=== PATIENT | male | born 1965 | race Hispanic/Latino ===

== ENCOUNTER 2024-10-07 22:26 | Observation (INO) | payer BC ==
[~2024-10-07] VITALS: Ht 167.6 cm; Wt 94.3 kg
[2024-10-07 23:04] LABS: BASOPHILS # (AUTO) 0.04 K/uL (0.00-0.20); BASOPHILS % (AUTO) 0.5 % (0.0-5.0); EOSINOPHILS # (AUTO) 0.13 K/uL (0.00-0.70); EOSINOPHILS % (AUTO) 1.6 % (0.0-8.0); HEMATOCRIT 40.7 % (42-54); IMMATURE GRANULOCYTE ABSOLUTE 0.03 K/uL (0-1); LYMPHOCYTES # (AUTO) 3.8 K/uL (1.0-4.8); LYMPHOCYTES % (AUTO) 45.9 % (21.0-51.0); MEAN CORPUSCULAR HEMOGLOBIN 28.9 pg (27.0-33.0); MEAN CORPUSCULAR HGB CONC 33.2 g/dL (32.0-36.0); MEAN CORPUSCULAR VOLUME 87.2 fL (79-99); MONOCYTES # (AUTO) 0.6 K/uL (0.1-1.0); MONOCYTES % (AUTO) 7.7 % (3.0-13.0); NEUTROPHILS # (AUTO) 3.6 K/uL (1.8-7.7); NEUTROPHILS % (AUTO) 43.9 % (40.0-77.0); PLATELET COUNT (AUTO) 224 K/uL (130-400); RED BLOOD CELL COUNT(AUTO) 4.67 MIL/uL (4.50-6.20); RED CELL DISTRIBUTION WIDTH 13.4 % (11.0-15.5); WHITE BLOOD COUNT (AUTO) 8.3 K/uL (4.8-10.8)
[2024-10-07 23:19] LABS: CREATININE 0.9 mg/dL (0.5-1.3); POTASSIUM 3.8 mmol/L (3.5-5.1)
[2024-10-07 23:30] LABS: B-TYPE NATRIURETIC PEPTIDE 6 pg/mL (0-100)
--- NOTE | 2024-10-08 00:01 | NUR ---
PT CARE ASSUMED AT THIS TIME
[2024-10-08 00:29] LABS: APPEARANCE,URINE CLEAR (CLEAR); BILIRUBIN,URINE NEGATIVE (NEGATIVE); COLOR,URINE COLORLESS (YELLOW); GLUCOSE, URINE (UA) NEGATIVE (NEGATIVE); KETONES,URINE NEGATIVE (NEGATIVE); LEUKOCYTE ESTERASE ,URINE NEGATIVE Leu/uL (NEGATIVE); NITRATE,URINE NEGATIVE (NEGATIVE); OCCULT BLOOD,URINE NEGATIVE (NEGATIVE); PH,URINE 5.5 (5.0-8.0); PROTEIN,URINE NEGATIVE (NEGATIVE); UROBILINOGEN,URINE 0.2 mg/dL (0.2-1.0)
[2024-10-08 00:33] LABS: ADD UA MICROSCOPIC NO
--- NOTE | 2024-10-08 02:16 | ERN ---
ED Note History of Present Illness Stated Complaint: CP, SOB Chief Complaint: Chest Pain Time Seen by MD: 22:51 Dictation: This is a 58-year-old male who presented to the emergency room with complaints of midsternal chest pain that started on 10/06/2024. He stated that it is exactly in the middle with some radiation to the precordial area but no loss of consciousness. Initially he thought it was heartburn and took [id number] medications. Was severe he came in today for evaluation he reported to me that he had an AR 10 years ago and he was transferred to [facility], [place], operated by [facility] in [facility] where a cardiac catheterization was done but he does not recall any stents being placed. 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 Note Reviewed/Agreed w/PFSH: Yes Review of System Dictation Constitutional: Negative for fever,chills, and weight loss Eyes: Negative for injury, pain,redness, and discharge ENT: Negative for injury,pain or swelling Cardiovascular: Positive for chest pain, denies palpitations, and edema Respiratory: Negative for shortness of breath, cough, and wheezing, Abdomen/GI: Negative for abdominal pain, nausea, vomiting, diarrhea, and constipation Back: Negative for injury and pain : Negative for injury, bleeding and discharge MS/Extremity: Negative for injury and deformity Skin: Negative for rash, and discoloration Neuro: Negative for headache, weakness, numbness, tingling, and seizure Psych: Negative for suicide ideation, homicidal ideation, and hallucinations Initial Vital Sign VS Vital Signs Date Time Temp Pulse Resp B/P (MAP) Pulse Ox O2 Delivery O2 Flow Rate FiO2 10/07/24 22:27 96.6 65 16 136/79 98 Room Air 10/08/24 00:18 0 21 Physical Exam Dictation General: awake, alert, NAD Head/Face: Normocephalic, atraumatic Eyes: PERRL, EOMI, vision at baseline ENT: oral cavity clear, TMs clear, no signs of infection Neck: Trachea midline, supple, no nuchal rigidity Cardiovascular: RRR, normal S1/S2, No MRGs, no JVD no chest wall tenderness Respiratory: CTAB, no respiratory distress, No rales or wheezes Abdomen: Soft, non-tender, non-distended, normal bowel sounds, no guarding or rebound. Skin: Warm, dry, normal turgor, no rash MS/Extremity: Pulses equal, no cyanosis, neurovascular intact, FROM Neuro: COAx4, GCS 15, strength 5/5, CN 2-12 intact, normal cerebellar exam, normal gait, Psych: Normal behavior, mood, and affect normal Extremities-trace edema without any palpable cords, Homans sign is negative Results (Laboratory/Radiology) Laboratory/Radiology Laboratory Tests Test 10/07/24 22:52 10/07/24 23:13 10/08/24 00:16 White Blood Count 8.3 K/uL (4.8-10.8) Red Blood Count 4.67 MIL/uL (4.50-6.20) Hemoglobin 13.5 g/dL (14.0-18.0) L Hematocrit 40.7 % (42-54) L Mean Corpuscular Volume 87.2 fL (79-99) Mean Corpuscular Hemoglobin 28.9 pg (27.0-33.0) Mean Corpuscular Hemoglobin Concent 33.2 g/dL (32.0-36.0) Red Cell Distribution Width 13.4 % (11.0-15.5) Platelet Count 224 K/uL (130-400) Mean Platelet Volume 10.2 fL (7.5-10.5) Immature Granulocyte % (Auto) 0.4 % (0-1) Neutrophils (%) (Auto) 43.9 % (40.0-77.0) Lymphocytes (%) (Auto) 45.9 % (21.0-51.0) Monocytes (%) (Auto) 7.7 % (3.0-13.0) Eosinophils (%) (Auto) 1.6 % (0.0-8.0) Basophils (%) (Auto) 0.5 % (0.0-5.0) Neutrophils # (Auto) 3.6 K/uL (1.8-7.7) Lymphocytes # (Auto) 3.8 K/uL (1.0-4.8) Monocytes # (Auto) 0.6 K/uL (0.1-1.0) Eosinophils # (Auto) 0.13 K/uL (0.00-0.70) Basophils # (Auto) 0.04 K/uL (0.00-0.20) Absolute Immature Granulocyte (auto 0.03 K/uL (0-1) Nucleated Red Blood Cells 0.0 % (0.0-0.19) Sodium Level 138 mmol/L (136-145) Potassium Level 3.8 mmol/L (3.5-5.1) Chloride Level 103 mmol/L (101-111) Carbon Dioxide Level 29 mmol/L (21-32) Blood Urea Nitrogen 17 mg/dL (7-18) Creatinine 0.9 mg/dL (0.5-1.3) Glomerular Filtration Rate Calc 98 mL/min (>90) Random Glucose 134 mg/dL (70-105) H Total Calcium 8.6 mg/dL (8.5-10.1) Total Creatine Kinase 293 U/L (21-232) H Troponin I High Sensitivity 6 ng/L (4-75) B-Type Natriuretic Peptide 6 pg/mL (0-100) Troponin I < 0.05 ng/mL (0.00-0.05) Urine Color COLORLESS (YELLOW) Urine Appearance CLEAR (CLEAR) Urine pH 5.5 (5.0-8.0) Urine Specific [place] 1.010 (1.001-1.031) Urine Protein NEGATIVE mg/dL (NEGATIVE) Urine Glucose (UA) NEGATIVE mg/dL (NEGATIVE) Urine Ketones NEGATIVE mg/dL (NEGATIVE) Urine Occult Blood NEGATIVE (NEGATIVE) Urine Nitrate NEGATIVE (NEGATIVE) Urine Bilirubin NEGATIVE mg/dL (NEGATIVE) Urine Urobilinogen 0.2 mg/dL (0.2-1.0) Urine Leukocyte Esterase NEGATIVE Ayanna/uL Labs Reviewed?: Yes ED Course ED Course Orders Procedure Category Date Status Time Vital Signs Per CPOE 10/07/24 Transmitted Routine 22:28 B-Type Natriuretic LAB 10/07/24 Complete Peptide 22:28 Chest 1vw RAD 10/07/24 Taken 22:28 12 Lead Ekg Tracing- EKG 10/07/24 Logged Technical 22:28 Oxygen By Nc/Pulse Ox CPOE 10/07/24 Transmitted 22:28 Maintain Iv CPOE 10/07/24 Transmitted 22:28 Iv Insertion CPOE 10/07/24 Transmitted 22:28 Cardiac Monitoring CPOE 10/07/24 Transmitted 22:28 Pulse Oximetry With CPOE 10/07/24 Transmitted Vs And Prn 22:28 Cbc With Differential LAB 10/07/24 Complete 22:28 Activity: Br W/Brp CPOE 10/07/24 Transmitted With Assist 22:28 Creatine Kinase, Total LAB 10/07/24 Complete 22:28 Troponin I High LAB 10/07/24 Complete Sensitivity 22:28 Urinalysis Profile LAB 10/07/24 Complete 22:28 Troponin Poc Order LAB 10/07/24 Complete Only 22:28 Bedside Troponin-I LAB.ER 10/07/24 In Process (Poc) 22:28 Basic Metabolic Panel LAB 10/07/24 Complete 22:28 Vital Signs Date Time Temp Pulse Resp B/P (MAP) Pulse Ox O2 Delivery O2 Flow Rate FiO2 10/08/24 01:35 68 19 120/61 97 Room Air* 0 21 10/08/24 00:18 97.9 60 19 113/64 95 Room Air* 0 21 10/07/24 22:27 96.6 65 16 136/79 98 Room Air HEART Score Response (Comments) Value History: Moderate suspicion (+1) 1 EKG: Repolarization changes 1 Age: 45-65yrs (+1) 1 Risk Factors: 1-2 risk factors (+1) 1 Initial Troponin: Normal limit (0) 0 HEART Score Risk: Low Risk for MACE (1-3) Total 4 Medical Decision Making MDM MDM: Differential diagnosis: ACS, unstable angina, progressive coronary artery disease, esophagitis Rationale: Tests considered and ordered secondary to shared decision making include: labs, ECG and radiology Previous outside records reviewed: Old ER visits. Risk of complication and/or morbidity or mortality of patient management: None Medications-Per medication reconciliation Need for hospitalization: Patient does meet criteria for hospitalization. Need for emergency major/minor surgery: No There are no social concerns with this patient. Prescription drug management Prescriptions will include symptomatic care Patient's prior external medical records from other ER visits were reviewed by me as indicated. Prior testing and results from previous visits were reviewed. Prior tests were taken into account with medical decision making and resource utilization, independent historian/historians were used to obtain complete medical history. I independently interpreted the test that were performed, results were reviewed by me and considered findings on radiology if ordered. Medical management and examination interpretation discussions were had by me with other qualified healthcare professionals as indicated for the patient's care. Problem List Problem List: (1) Chest pain at rest (2) History of AR (myocardial infarction) (3) Hypercholesterolemia (4) Obesity (BMI 30.0-34.9) DX & DISP Disposition: Inpatient Decision to Admit Time: 02:15 Departure Impression: Primary Impression: Chest pain at rest Additional Impressions: History of AR (myocardial infarction), Hypercholesterolemia, Obesity (BMI 30.0-34.9) Condition: Stable Additional Instructions: Patient was informed of all the diagnostic labs and procedures conducted in the emergency room today and demonstrated understanding of the results. I personally reviewed and interpreted all the diagnostic exams performed in the ER today. The patient will be admitted to the hospital for further treatment and evaluation. Disposition-admit to facility Condition-stable/guarded Course-uncertain at this time Pain status-decreased Assessment-exam unchanged Admission Certification- I certify that the patients status is appropriate and is based on my best clinical judgment and the patient's condition as documented in the medical records Referrals: SELF,REFERRAL (PCP) NICHOLAS MUELLER MD Oct 08, 2024 02:16
[2024-10-08] MEDS ORDERED: hydrALAZine 20MG/ML VIAL IV PRN (02:30)
[2024-10-08] MEDS ORDERED: ondanSETRON 4MG INJ IV PRN (02:30)
[2024-10-08] MEDS ORDERED: NITROGLYCERIN 0.4 MG SL TAB SL PRN (02:30)
--- NOTE | 2024-10-08 02:32 | HP ---
History of Present Illness Reason for Visit: Chest pain History of Present Illness Mr. Chacko is a 58-year-old male that was seen and examined today on 10/08/2024. Patient is a good historian of personal health Patient states that he came to the emergency department with a chief complaint of chest pain. Onset was four days ago. Location is to lower sternum and epigastric area. Duration is on and off. Character is described as burning. Symptoms are aggravated with eating. There was no alleviating factors. Patient denies any associated shortness of breath. Today in the emergency department CBC unremarkable, CK 293, urinalysis unremarkable, chest x-ray is pending radiology interpretation. Emergency room physician recommended that patient be admitted with a diagnosis of chest pain. Past Medical History ADDITIONAL PAST MEDICAL HISTORY: [Denies] SOCIAL HISTORY: [Negative for smoking, alcohol use, drug use. Patient lives with his Suam Chacko. Patient is typically independent of all his ADLs. Patient denies difficulty pain is bills. Patient is currently unemployed. Patient has good access to health care through his insurance.] SURGICAL HISTORY: [Right knee surgery] Review of Systems General: No Fever, No Chills, No Night Sweats, No Fatigue, No Malaise, No Appetite, No Other HEENT: No Head Aches, No Visual Changes, No Eye Pain, No Ear Pain, No Dysphasia, No Sinus Congestion, No Post Nasal Drip, No Sore Throat, No Other Pulmonary: No Dyspnea, No Cough, No Pleuritic Chest Pain, No Other Cardiovascular: Chest Pain; No: Palpitations, Orthopnea, Paroxysmal Noc. Dyspnea, Edema, Lt Headedness, Other Gastrointestinal: No: Nausea, Vomiting, Abdominal Pain, Diarrhea, Constipation, Melena, Hematochezia, Other Genitourinary: No Dysuria, No Frequency, No Incontinence, No Hematuria, No Retention, No Other Musculoskeletal: No: other, neck pain, shoulder pain, arm pain, back pain, hand pain, leg pain, foot pain Skin: No Urticaria, No Rash, No Other Neurological: No: Weakness, Numbness, Incoordination, Change in speech, Confusion, Seizures, Other Allergies: Coded Allergies: No Known Allergies (Unverified Allergy, Unknown, 10/07/24) Exam Vital Signs Vital Signs Date Time Temp Pulse Resp B/P (MAP) Pulse Ox O2 Delivery O2 Flow Rate FiO2 10/08/24 01:35 68 19 120/61 97 Room Air* 0 21 10/08/24 00:18 97.9 General Appearance: Alert, Oriented X3, Cooperative, No acute distress HEENT: Atraumatic, EOMI Respiratory: Clear to auscultation, Normal air movement, NL respiratory effort Cardiovascular: Regular rate, Regular rhythm, Normal S1, Normal S2 Abdominal: Normal bowel sounds, Soft, No tenderness Extremities: No edema Skin: No significant lesion Neuro: Normal speech, Strength at 5/5 X4 ext, Sensation intact, Cranial nerves 3-12 NL Psych/Mental Status: Mood NL, Thoughts/Content NL Assessment/Plan ASSESSMENT: [ Chest pain, POA Mild rhabdomyolysis, POA Gastritis, POA] PLAN: [ Admit patient to medical floor as inpatient status. Place patient on telemetry monitoring. Administer aspirin 325 mg by mouth times 1 dose Continue aspirin 81 mg by mouth once daily Nitroglycerin sublingual 0.4 mg as needed for chest pain every 5 minutes, max 3 doses, hold for systolic blood pressure less than 100 mmHg. Trend troponin every 6 hours x 3 sets Supplemental oxygen to maintain O2 saturation greater than 92% Consult cardiology if any elevation in troponin or troponin uptrending Lactated Ringer's 1 L IV bolus. Recheck CK at 10:00 a.m. Maalox 30 mL by mouth times 1. Viscous lidocaine 2% 10 mL by mouth as 1. Bentyl 10 mg/5 mL by mouth times 1. GI prophylaxis, famotidine DVT prophylaxis, Lovenox ADVANCED CARE PLANNING 1. Which of the following were discussed? Hospice Care - Yes / No Therapeutic options - Yes / No Advance Directives - Yes -patient states he does not have any advance directives in place at this time, however his can make decisions for him if he becomes unable. Other discussions - patient wishes to remain a full code at this time 2. Discussed with who? Patient 3. Voluntary nature of this service was explained to the patient? Yes 4. Amount of time spent - ___ 16 minutes ____ 5. Reviewed by Physician? (if this service was performed by NPP) Yes This document was generated in part using voice recognition software, occasional wrong word or sound alike substitutions may have occurred due to the inherent limitations of voice recognition software. Read the chart carefully and recognize using context, where the substitutions have occurred. Although every effort was made to edit the content, medical center representative and typing errors may occur ATTESTATION BY PHYSICIAN I have seen and examined the patient. I reviewed the documentation, medical decision making, and treatment plan as noted by the mid-level provider above. I agree with the findings and plan of care. ANDER DORSEY [facility] Oct 08, 2024 02:32
[2024-10-08] MEDS: ASPIRIN 325MG TAB PO ONE (02:43)
[2024-10-08] MEDS: PANTOPrazole 40 MG TAB DR PO ONE (02:44)
[2024-10-08] MEDS: LACTATED RINGERS 1000ML IV ONE (02:44)
[2024-10-08] MEDS: LIDOCAINE HCL 2% VISCOUS 15 ML UDCUP PO ONE (03:02)
[2024-10-08] MEDS: MAG/ALUM/SIMETH 30 ML UDCUP PO ONE (03:02)
[2024-10-08] MEDS: DICYCLOMINE HCL 10 MG/5 ML ML PO ONE (03:03)
--- NOTE | 2024-10-08 06:25 | EKG ---
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
--- NOTE | 2024-10-08 07:06 | NUR ---
REPORT GIVEN TO MIGDALIA HARVEY AT THIS TIME
[2024-10-08 07:35] LABS: BASOPHILS # (AUTO) 0.02 K/uL (0.00-0.20); BASOPHILS % (AUTO) 0.3 % (0.0-5.0); EOSINOPHILS # (AUTO) 0.11 K/uL (0.00-0.70); EOSINOPHILS % (AUTO) 1.8 % (0.0-8.0); HEMATOCRIT 41.5 % (42-54); IMMATURE GRANULOCYTE ABSOLUTE 0.02 K/uL (0-1); LYMPHOCYTES # (AUTO) 2.7 K/uL (1.0-4.8); LYMPHOCYTES % (AUTO) 44.9 % (21.0-51.0); MEAN CORPUSCULAR HEMOGLOBIN 28.7 pg (27.0-33.0); MEAN CORPUSCULAR HGB CONC 32.5 g/dL (32.0-36.0); MEAN CORPUSCULAR VOLUME 88.1 fL (79-99); MONOCYTES # (AUTO) 0.5 K/uL (0.1-1.0); MONOCYTES % (AUTO) 7.5 % (3.0-13.0); NEUTROPHILS # (AUTO) 2.7 K/uL (1.8-7.7); NEUTROPHILS % (AUTO) 45.2 % (40.0-77.0); PLATELET COUNT (AUTO) 224 K/uL (130-400); RED BLOOD CELL COUNT(AUTO) 4.71 MIL/uL (4.50-6.20); RED CELL DISTRIBUTION WIDTH 13.6 % (11.0-15.5)
[2024-10-08 07:47] LABS: CREATININE 0.7 mg/dL (0.5-1.3); MAGNESIUM 1.9 mg/dL (1.80-2.40); PHOSPHORUS 3.4 mg/dL (2.5-4.9); POTASSIUM 3.9 mmol/L (3.5-5.1)
--- NOTE | 2024-10-08 07:55 | NUR ---
PT ASSESSMENT: PT APPEARED TO BE ASLEEP UPON ENTERING THE PTS ROOM. NO ACUTE DISTRESS NOTED. PT AWOKE W/LIGHT TOUCH STIMULI. PT HAS SINUS RHYTHM ON AGENT TICKETING GATE. CARDIO/PULMONARY: PT DENIES CP AT THIS TIME. SR NO ECTOPY NOTED. S1S2 AUSCULTED APICALLY. 2+ PULSES TO BILATERAL RADIAL AND DORSALIS PEDAL SITES. NO EDEMA NOTED TO LE'S. PT HAS A L AC 20G. LSCTA TO ALL LUNG BROOKS. NO USE OF ACCESSORY MUSCLES NOR STERNAL RETRACTIONS NOTED. CAP REFILL LESS THAN 3 SECONDS AND NO CYANOSIS NOTED TO NAIL BEDS ON HANDS. NEURO: PT A/O X 4. FOLLOWS SIMPLE AND COMPLEX COMMANDS. PT GCS 15 AND NEUROLOGICALLY INTACT. GI/: PT DENIES ANY BOWEL OR BLADDER ISSUES. HE IS ABLE TO VOID VIA URINAL AND IS ABLE TO AMBULATE TO THE TOILET TO HAVE A STOOL NEED BE. MUSCULOSKELETAL/INTEGUMENTARY: PT HAS FULL ROM TO ALL EXTREMITIES. NO NOTED NOR VERBALIZED SKIN WOUNDS OR LESIONS.
--- NOTE | 2024-10-08 08:32 | NUR ---
MEDICATION RECONILIATION: NO HOME MEDICATIONS. PT STATES HE TAKES ONLY OTC'S
[2024-10-08] MEDS: ASPIRIN 81 MG EC TAB PO SCH (09:17)
[2024-10-08] MEDS: FAMOTIDINE 20MG TAB PO SCH (09:17)
[2024-10-08] MEDS: 0.9%NACL 1000ML 1,000 ML IV SCH (09:18)
[2024-10-08] MEDS: ENOXAPARIN SODIUM 40 MG/0.4 ML SYRINGE SQ SCH (09:18)
--- NOTE | 2024-10-08 09:38 | HMCIMG ---
PORTABLE CHEST RADIOGRAPH INDICATION: CHEST PAIN COMPARISON: None FINDINGS: Heart size is normal. The pulmonary vascularity and dai appear normal. No abnormal pulmonary parenchymal opacity or consolidation identified. No significant pleural effusion noted. No pneumothorax detected. IMPRESSION: No radiographic evidence for any acute cardiopulmonary process.
--- NOTE | 2024-10-08 11:21 | NUR ---
DCP Patient is Telugu speaking. Patient live in a house with three steps at the entrance and walk in shower with Suma Chacko, Spouse [phone]. Address: [address], [place]. States he is unemployed due to returning home to care for spouse's illness, remains independent and drives self. States able to complete ADL's on his own. States has a cane from previous extremity injury; denies other medical devices. Denies home health services, home care provider or dialysis. PCP - Sumeet Bundy MD [facility]. Upon discharge, Suma Chacko, Spouse [phone] and will assist with care, as needed. Patient does not foresee additional needs at this time. Addendum: 10/08/24 at 1129 by EVELYN DUARTE RN CM Amended: Links added.
--- NOTE | 2024-10-08 11:57 | PN ---
[facility] PROGRESS NOTE Date of Service: Oct 08, 2024 Time of Service: 11:[address] Brown SUBJECTIVE: [ 10/07 Mr. Chacko is a 58-year-old male that was seen and examined today on 10/08/2024. Patient is a good historian of personal health Patient states that he came to the emergency department with a chief complaint of chest pain. Onset was four days ago. Location is to lower sternum and epigastric area. Duration is on and off. Character is described as burning. Symptoms are aggravated with eating. There was no alleviating factors. Patient denies any associated shortness of breath. Today in the emergency department CBC unremarkable, CK 293, urinalysis unremarkable, chest x-ray is pending radiology interpretation. Emergency room physician recommended that patient be admitted with a diagnosis of chest pain. 10/08 patient was seen by nurse practitioner and physician during rounding in emergency department in room ED 9. Patient is s/p chest x-ray which is negative. CK showed 293 patient is on normal saline at 100 mL/hour. Troponin negative x2. We are pending 2D echo at this moment. Patient denies any antonio rtness of breath, chest pain, nausea, vomiting or any other discomfort at this moment. As per patient he does not take any medications at home besides some vitamins. At this moment we will hold off to consult litigation specialist until 2D echo results. We will continue to monitor patient in the meantime. A.m. labs.] REVIEW OF SYSTEMS CONSTITUTIONAL: Denies fevers, chills, or night sweats. No unintentional weight loss reported. NEUROLOGICAL: Denies headache, amaurosis fugax, motor weakness, sensory deficit, vertigo/spinning sensation, gait abnormalities, or tremors. ENT: No hearing loss, otalgia, otorrhea, rhinitis, rhinorrhea, hoarseness, or sore throat. CARDIOVASCULAR: Denies any exertional angina, dyspnea on exertion, orthopnea, paroxysmal nocturnal dyspnea, palpitations, life-threatening arrhythmias, claudication. PULMONARY: Denies any shortness of breath, cough, phlegm/sputum, hemoptysis, pleuritic chest pain. SLEEP: Denies morning headaches, daytime somnolence or napping. Denies difficulty falling asleep, staying asleep, waking from sleep. Denies knowledge of snoring. GASTROINTESTINAL: Denies any type of dysphagia to either liquids or solids. Denies nausea, vomiting, pyrosis, early satiety, abdominal pain, diarrhea, constipation, or changes in stool consistency or caliber. Denies coffee-ground emesis, hematemesis, hematochezia, or melanotic stools. GENITOURINARY: Denies frequency, urgency, nocturia, hematuria or incontinence (Storage/Irritative symptoms.) Low urinary stream, straining to void, urinary intermittency or hesitancy, splitting of the voiding stream, terminal dribbling. ENDOCRINOLOGIC: Denies polyuria, polydipsia, polyphagia or heat/cold intolerances. HEMATOLOGIC: Denies thrombophilia/previous clots, or coagulopathy/bleeding disorders. ONCOLOGIC: Denies personal history of malignancy. DERMATOLOGIC: Denies rashes or pruritus. PSYCHIATRIC: Denies any suicidal or homicidal ideation. Denies hallucinations. PHYSICAL EXAM GENERAL APPEARANCE: The patient is awake, alert, and oriented, in no acute cardiopulmonary distress. NEUROLOGICAL: Cranial nerves II-XII grossly intact. Motor is 5/5 in bilateral upper and lower extremities proximal to distal. No sensory deficits. HEENT: Face is symmetric. Pupils are equal and reactive. Extraocular movements are intact. NECK: Supple. No JVD. No thyromegaly. No submental, submandibular, pre- /postauricular, occipital or supraclavicular lymphadenopathy. CHEST: Normal chest expansion. No Telemetry. LUNGS: Absence of any rales, rhonchi or any wheezing. CARDIOVASCULAR: Regular. S1 and S2 normal. No appreciable rubs, murmurs or gallops. ABDOMEN: Soft, nontender, and nondistended. There is no rebound, voluntary guarding, or rigidity. : Deferred. No Falcon. EXTREMITIES: Non-edematous and not cyanotic. No clubbing. Good capillary refill. SKIN: No skin breakdown. Vital Signs (last 8hr) Date Time Temp Pulse Resp B/P (MAP) Pulse Ox O2 Delivery O2 Flow Rate FiO2 10/08/24 06:51 62 18 122/66 95 Room Air* 0 21 10/08/24 04:11 63 20 112/69 96 Room Air* 0 21 LABS: Laboratory: Test 10/08/24 06:49 10/08/24 00:16 10/07/24 23:13 10/07/24 22:52 Range/Units White Blood Count 6.0 # 4.8-10.8 K/uL Red Blood Count 4.71 4.50-6.20 MIL/uL Hemoglobin 13.5 L 14.0-18.0 g/dL Hematocrit 41.5 L 42-54 % Mean Corpuscular Volume 88.1 79-99 fL Mean Corpuscular Hemoglobin 28.7 27.0-33.0 pg Mean Corpuscular Hemoglobin Concent 32.5 32.0-36.0 g/dL Red Cell Distribution Width 13.6 11.0-15.5 % Platelet Count 224 130-400 K/uL Mean Platelet Volume 10.7 H 7.5-10.5 fL Immature Granulocyte % (Auto) 0.3 0-1 % Neutrophils (%) (Auto) 45.2 40.0-77.0 % Lymphocytes (%) (Auto) 44.9 21.0-51.0 % Monocytes (%) (Auto) 7.5 3.0-13.0 % Eosinophils (%) (Auto) 1.8 0.0-8.0 % Basophils (%) (Auto) 0.3 0.0-5.0 % Neutrophils # (Auto) 2.7 1.8-7.7 K/uL Lymphocytes # (Auto) 2.7 1.0-4.8 K/uL Monocytes # (Auto) 0.5 0.1-1.0 K/uL Eosinophils # (Auto) 0.11 0.00-0.70 K/uL Basophils # (Auto) 0.02 0.00-0.20 K/uL Absolute Immature Granulocyte (auto 0.02 0-1 K/uL Nucleated Red Blood Cells 0.0 0.0-0.19 % Sodium Level 140 136-145 mmol/L Potassium Level 3.9 3.5-5.1 mmol/L Chloride Level 106 101-111 mmol/L Carbon Dioxide Level 27 21-32 mmol/L Blood Urea Nitrogen 12 7-18 mg/dL Creatinine 0.7 0.5-1.3 mg/dL Glomerular Filtration Rate Calc 105 >90 mL/min Random Glucose 116 H 70-105 mg/dL Total Calcium 8.6 8.5-10.1 mg/dL Phosphorus Level 3.4 2.5-4.9 mg/dL Magnesium Level 1.90 1.80-2.40 mg/dL Troponin I High Sensitivity 8 4-75 ng/L Urine Color COLORLESS YELLOW Urine Appearance CLEAR CLEAR Urine pH 5.5 5.0-8.0 Urine Specific Basom 1.010 1.001-1.031 Urine Protein NEGATIVE NEGATIVE mg/dL Urine Glucose (UA) NEGATIVE NEGATIVE mg/dL Urine Ketones NEGATIVE NEGATIVE mg/dL Urine Occult Blood NEGATIVE NEGATIVE Urine Nitrate NEGATIVE NEGATIVE Urine Bilirubin NEGATIVE NEGATIVE mg/dL Urine Urobilinogen 0.2 0.2-1.0 mg/dL Urine Leukocyte Esterase NEGATIVE NEGATIVE Ayanna/uL Troponin I < 0.05 0.00-0.05 ng/mL Total Creatine Kinase 293 H 21-232 U/L B-Type Natriuretic Peptide 6 0-100 pg/mL Current Medications Medications (Trade) Dose Ordered Sig/Trinity Route PRN Reason Start Time Stop Time Status Last Admin Dose Admin Aspirin (Aspirin 81mg Ec Tab) 81 mg DAILY PO 10/08/24 09:00 11/07/24 08:59 10/08/24 09:17 81 MG Enoxaparin Sodium (Lovenox) 40 mg DAILY SQ 10/08/24 09:00 11/07/24 08:59 10/08/24 09:18 40 MG Famotidine (Pepcid 20mg Tab) 20 mg DAILY PO 10/08/24 09:00 11/07/24 08:59 10/08/24 09:17 20 MG Hydralazine HCl (APRESOLine 20MG INJ) 10 mg Q6H PRN IV For:SBP above 160;DBP above 90 10/08/24 02:30 11/07/24 02:29 Nitroglycerin (Nitrostat) 0.4 mg PROTOCOL PRN SL CHEST PAIN 10/08/24 02:30 11/07/24 02:29 Ondansetron HCl (zoFRAN 4MG INJ) 4 mg Q6H PRN IV NAUSEA/VOMITING 10/08/24 02:30 11/07/24 02:29 Sodium Chloride 1,000 ml @ 100 mls/hr Q10H IV 10/08/24 09:30 11/07/24 09:29 10/08/24 09:18 100 MLS/HR DIAGNOSTICS / RADIOLOGY: [ ] ASSESSMENT: [ Acute chest pain of unknown origin POA Acute rhabdomyolysis POA Acute gastritis POA Uncontrolled hypertension POA Multifactorial anemia of unknown origin POA] PLAN: [ Pending 2D echo results Patient admitted to inpatient status to the medical floor Patient with a tele monitor Aspirin 325 daily Nitroglycerin sublingual p.r.n. Troponins every 6 hours x3 sets 0 two as needed Consult cardiology if elevation in troponins or abnormal 2D echo LR at 100 mL/hour A.m. labs GI prophylaxis famotidine Lovenox DVT prophylaxis Chest x-ray negative Urinalysis negative Patient stated he does not take any medications at home besides vitamins here and there] ATTESTATION BY PHYSICIAN I have seen and examined the patient. I reviewed the documentation, medical decision making, and treatment plan as noted by the mid-level provider above. I agree with the findings and plan of care. ERIN Pereira MD RESIDENTIAL TEAM LEADER Oct 08, 2024 11:57
--- NOTE | 2024-10-08 14:32 | HMCSR ---
APPROVED REPORT EXAM: Two-dimensional and M-mode echocardiogram with Doppler and color Doppler. INDICATION ICD: Chest Pain Heart Failure 2D Dimensions RVDd4.6 cmLVEF(%)54.6 (>50%)LVED Vol(simp.)109.4 mL IVSd0.8 (0.7-1.1cm)FS(%)28 %LVES Vol(simp.)43.2 mL LVDd4.4 (3.8-5.6cm)LA (2D)3.4 (1.6-4.0cm)LVEF(%, simp.)61 % PWd1.0 (0.7-1.1cm)Ao Root(2D)3.1 (2.0-3.7cm)LA ESV INDEX (BP)24.42 mL/m2 IVSs1.1 cmLVOT diam2.2 (1.8-2.4cm) LVDs3.1 (2.5-4.0cm)IVC diam2.2 cm PWs1.2 cm Deformation Strain Apical 4-14.0 % Apical 2-19.0 % Apical 3-19.0 % Global Strain-17.0 % M-Mode Dimensions EPSS0.7 cm LA (MM)3.7 (1.6-4.0cm) Ao Root(MM)3.1 (2.0-3.7cm) Aortic Valve AoV Vmax1.4 m/Amee Peak GR7.9 mmHgLVOT Vmax1.0 m/s AoV VTI0.3 mAo Mean GR3.9 mmHgLVOT VTI0.23 m OTONIEL (VMAX)2.5 cm2AVA (VTI) 2.5 cm2 Mitral Valve MV E Vmax68.4 cm/sDECEL Mcnh151 ms MV A Vmax77.7 cm/sP 1/2 T100 ms E/A ratio0.9MVA (PHT)2.2 cm2 TDI E/E' Medial4.8 Tricuspid Valve TR Vmax2.2 m/sRVSP19.2 mmHg TR Peak GR19.3 mmHg Left Ventricle Left ventricular cavity size is normal. GS -17% There is normal LV segmental wall motion. There is no rmal left ventricular wall thickness. LVEF is 55-60%. 3D volume EF 60% Stage I diastolic dysfunction. Right Ventricle The right ventricle is mildly dilated. The right ventricular systolic function is normal. Atria The left atrium size is normal. The right atrium size is normal. Aortic Valve The aortic valve is normal in structure and function. Trace aortic regurgitation. There is no aortic valvular stenosis. Mitral Valve The mitral valve is normal in structure and function. Mitral regurgitation is trace. There is no mitr al valve stenosis. Tricuspid Valve The tricuspid valve is normal in structure and function. There is trace tricuspid valve regurgitation noted. Pulmonic Valve The pulmonary valve is normal in structure and function. There is no pulmonic valvular regurgitation. Great Vessels The aortic root is normal in size. The IVC is normal in size and collapses >50% with inspiration. Pericardium No pericardial effusion. Conclusion LVEF is 55-60%. 3D volume EF 60% GS -17% There is normal LV segmental wall motion. The aortic root is normal in size. No pericardial effusion.
--- NOTE | 2024-10-08 15:23 | NUR ---
PT CURRENTLY DENIES ANY CHEST PAIN/DISCOMFORT.
[2024-10-08 22:50] VITALS: BP 124/83; PULSE 68; RESP 18; TEMP 97.7
[2024-10-08] MEDS: acetaMINOPHEN 500 MG TABLET PO PRN (23:25)
[2024-10-09 04:07] VITALS: BP 90/59; PULSE 83; RESP 19; TEMP 97.9
[2024-10-09 04:17] LABS: BASOPHILS # (AUTO) 0.02 K/uL (0.00-0.20); BASOPHILS % (AUTO) 0.3 % (0.0-5.0); EOSINOPHILS # (AUTO) 0.12 K/uL (0.00-0.70); EOSINOPHILS % (AUTO) 1.8 % (0.0-8.0); HEMATOCRIT 41.4 % (42-54); IMMATURE GRANULOCYTE ABSOLUTE 0.02 K/uL (0-1); LYMPHOCYTES # (AUTO) 2.7 K/uL (1.0-4.8); MEAN CORPUSCULAR HEMOGLOBIN 28.8 pg (27.0-33.0); MEAN CORPUSCULAR HGB CONC 32.9 g/dL (32.0-36.0); MEAN CORPUSCULAR VOLUME 87.5 fL (79-99); MONOCYTES # (AUTO) 0.6 K/uL (0.1-1.0); MONOCYTES % (AUTO) 8.5 % (3.0-13.0); NEUTROPHILS # (AUTO) 3.1 K/uL (1.8-7.7); NEUTROPHILS % (AUTO) 48.1 % (40.0-77.0); PLATELET COUNT (AUTO) 202 K/uL (130-400); RED BLOOD CELL COUNT(AUTO) 4.73 MIL/uL (4.50-6.20); RED CELL DISTRIBUTION WIDTH 13.7 % (11.0-15.5); WHITE BLOOD COUNT (AUTO) 6.5 K/uL (4.8-10.8)
[2024-10-09 04:31] LABS: ALBUMIN 3.5 g/dL (3.5-5.0); BILIRUBIN,TOTAL 0.3 mg/dL (0.2-1.0); CREATININE 0.9 mg/dL (0.5-1.3); MAGNESIUM 2.1 mg/dL (1.80-2.40); POTASSIUM 3.6 mmol/L (3.5-5.1); TOTAL PROTEIN, SERUM 6.9 g/dL (6.0-8.3)
[2024-10-09 08:00] VITALS: BP 144/89; PULSE 90; RESP 19; TEMP 98.2
[2024-10-09 08:45] VITALS: O2SAT 95
[2024-10-09] MEDS ORDERED: TAMSULOSIN PO (08:45)
[2024-10-09] MEDS ORDERED: ROSU10TA72 PO (08:45)
--- NOTE | 2024-10-09 08:48 | NUR ---
HOME MEDICATIONS HOME MEDICATIONS ENTERED INDICATED BY PATIENT AND COMPARING WITH EXTERNAL PHARMACY. PATIENT CONFIRMED. PENDING RECONCILIATION
[2024-10-09 12:00] VITALS: BP 125/72; PULSE 75; RESP 19; TEMP 97.8
[2024-10-09 16:00] VITALS: BP 122/82; PULSE 77; RESP 19; TEMP 98
--- NOTE | 2024-10-09 16:25 | DS ---
Discharge Summary Hospital Course Summary: Mr. Chacko is a 58-year-old male that was seen and examined today on 10/08/2024. Patient is a good historian of personal health Patient states that he came to the emergency department with a chief complaint of chest pain. Onset was four days ago. Location is to lower sternum and epigastric area. Duration is on and off. Character is described as burning. Symptoms are aggravated with eating. There was no alleviating factors. Patient denies any associated shortness of breath. During the hospital stay patient was chest pain has resolved and he thought it was more like epigastric pain. His troponins were negative. EKG was without acute ST-T changes. A 2D echocardiogram showed normal LVEF function 55-60%. With the symptoms have improved he desired to go home. He was advised to get a stress test by his primary care physician. He will follow up with him this coming Friday and we will get scheduled for a stress rest patient was ambulating free of chest pain and was discharged in a stable clinical condition Assessment/Plan: ASSESSMENT: [ Acute chest pain of unknown origin POA Acute rhabdomyolysis POA Acute gastritis POA Uncontrolled hypertension POA Multifactorial anemia of unknown origin POA] Recommended patient follow up with his primary care physician and get scheduled for an outpatient cardiac stress test Home Medications: Reported Medications [Tamsulosin] No Conflict Check, 0.4 MG PO HS 10/09/24 Rosuvastatin Calcium (Rosuvastatin Calcium) 10 Mg Tablet, 1 TAB PO HS 10/09/24 Time spent arranging discharge: 31-60 minutes TEDDY LING MD Oct 09, 2024 16:25
--- NOTE | 2024-10-09 16:29 | NUR ---
DISCHARGE DISCHARGE ORDERS FOR PATIENT TO BE DISCHARGED HOME OBTAINED BY DR. MORALES. DISCHARGE INSTRUCTIONS AND DOCUMENTATION GIVEN TO PATIENT AT BEDSIDE. VOICED UNDERSTANDING. IV DISCONTINUED, CATHETER INTACT, NO S/S OF INFECTION NOTED TO SITE. PATIENT TOLERATED WELL. BANDS REMOVED. PATIENT AWAITING TRANSPORTATION BY DAUGHTER. REQUESTED TO LEAVE ON HIS OWN SINCE HE DROVE HIMSELF TO ER. ADVISED DUE TO DIAGNOSIS AND SYMPTOMS, NOT SAVE TO DRIVE HIMSELF. PATIENT VOICED UNDERSTANDING. CONTACTED DAUGHTER FOR TRANSPORTATION. PENDING ARRIVAL.
--- NOTE | 2024-10-09 16:51 | NUR ---
DISCHARGE PATIENT LEFT AMBULATING, ACCOMPANIED BY NATALEE. PATIENT REFUSED WHEELCHAIR, STATED FEELS GOOD TO WALK. NO S/S OF DISTRESS NOTED.
== END 2024-10-09 17:45 | disposition home or self-care (01) ==
LOC: EDH 22:26 → EDHIP 10-08 02:27 → INTOOBSV 10-08 02:27 → 4DH 10-08 22:37
PROVIDERS: ADMIT Internal Medicine; ATTEND Internal Medicine
DX: R07.89 Other chest pain (principal); M62.82 Rhabdomyolysis; K29.00 Acute gastritis without bleeding; I10 Essential (primary) hypertension; D64.9 Anemia, unspecified; I25.2 Old myocardial infarction; E66.9 Obesity, unspecified; E78.00 Pure hypercholesterolemia, unspecified; I25.10 Atherosclerotic heart disease of native coronary artery without angina pectoris; Z56.0 Unemployment, unspecified; Z68.30 Body mass index [BMI] 30.0-30.9, adult; Z79.82 Long term (current) use of aspirin; Z98.890 Other specified postprocedural states; Z79.899 Other long term (current) drug therapy
CPT/HCPCS: 99284; 71045; 82550 ×3; 84484 ×5; 80048 ×2; 83880; 85025 ×3; 93005; 96361 ×2; 93306; 96360; 83735 ×2; 84100; 81003; 36415 ×2; 93356; 76376; 96372 ×2; 80053; J7120; J7030; J1650 ×2; G0378; 99285